=== PATIENT | female | born 1970 | race Caucasian/White ===

== ENCOUNTER 2019-05-23 08:07 | Day surgery (SDC) | payer BC, MEDICAID ==
[2019-05-19 12:25] VITALS: BMI 33.9
[2019-05-23] VITALS (11 sets, daily range): BP systolic 118–163; BP diastolic 69–84; PULSE 74–85; RESP 11–20; Ht 157.5 cm; Wt 88.2 kg
[~2019-05-23] VITALS: Ht 157.5 cm; Wt 88.2 kg
[~2019-05-23 08:07] MED LIST: AMLO5TAB4 PO; ESCI20TA PO; LEVO100T82 PO; NORT50CA PO; TOPI50TA13 PO
[2019-05-23] MEDS ORDERED: LACTATED RINGER'S 1,000 ML IV SCH (09:30)
[2019-05-23] MEDS ORDERED: FENTAnyl 50 MCG/ML VIAL IV PRN ×3 (10:00)
[2019-05-23] MEDS ORDERED: PROPOFOL 200 MG INJ ONE (10:00)
[2019-05-23] MEDS ORDERED: GLYCOPYRROLATE 0.4 MG INJ ONE (10:00)
[2019-05-23] MEDS ORDERED: ALBUTEROL 0.083% (NEB) 2.5 MG/3 ML AMP HHN PRN (10:00)
[2019-05-23] MEDS ORDERED: MEPERIDINE 25 MG INJ IV PRN (10:00)
[2019-05-23] MEDS ORDERED: HYDROmorphONE 1 MG/5 ML IV SYRINGE IV PRN ×3 (10:00)
[2019-05-23] MEDS ORDERED: DESFLURANE 15 MIN ONE (10:00)
[2019-05-23] MEDS ORDERED: ONDANSETRON 4 MG INJ IV PRN (10:00)
[2019-05-23] MEDS ORDERED: FENTAnyl 50 MCG/ML VIAL ONE (10:00)
[2019-05-23] MEDS ORDERED: METOCLOPRAMIDE 10 MG INJ IV PRN (10:00)
[2019-05-23] MEDS ORDERED: DIPHENHYDRAMINE 50 MG INJ IV PRN (10:00)
[2019-05-23] MEDS ORDERED: LIDOCAINE 100 MG SYRINGE ONE (10:13)
[2019-05-23] MEDS ORDERED: ROCURONIUM 50 MG INJ ONE (10:13)
[2019-05-23] MEDS ORDERED: CEFAZOLIN 1 GM INJ ONE (10:13)
[2019-05-23] MEDS ORDERED: SUCCINYLCHOLINE CHLORIDE 100 MG/5 ML SYG IV ONE (10:13)
[2019-05-23] MEDS ORDERED: DEXAMETHASONE 4 MG/ML 5 ML INJ ONE (10:14)
[2019-05-23] MEDS ORDERED: LABETALOL HCL 20MG INJ ONE (10:16)
[2019-05-23] MEDS ORDERED: SUGAMMADEX SODIUM 200 MG/2 ML VIAL IV ONE (10:33)
== END 2019-05-23 12:15 | disposition home or self-care (01) ==
LOC: SDS 08:07
PROVIDERS: ATTEND Obstetrics & Gynecology
DX: N95.0 Postmenopausal bleeding (principal); E03.9 Hypothyroidism, unspecified; G47.30 Sleep apnea, unspecified
CPT/HCPCS: 58563; 71045; 85025; 86850; 86900; 86901; 88305; 88331; J0690; J1170; J2001; J2765; J3010; Z7512; Z7610; J1100